=== PATIENT | male | born 1985 | race Caucasian/White ===

== ENCOUNTER 2017-12-23 16:17 | Inpatient (IN) | payer MEDICAID, SELFPAY ==
[2017-12-23 16:29] VITALS: BMI 28.5
[2017-12-23 16:35] VITALS: BP 135/101; PULSE 83; RESP 16; TEMP 36.9
--- NOTE | 2017-12-23 18:13 | PCM.HP.STD ---
Problem List (1) Opioid withdrawal Status: Acute History of Present Illness Date of Admission: 12/23/17 Chief Complaint: Opioid withdrawal The patient is a 32 year old M who was admitted directly into the medical stabilization program at [facility] for treatment of acute opioid withdrawal. Patient is a daily IV heroin user, he is been using IV heroin for the last 11 years, patient states he has been through detox programs at least 5 times, he states that he has never been in a detox program more than 4 days because he leaves after that time of his own accord. Patient last used yesterday, he is experiencing sweating, muscle aches, restlessness, and malaise. Patient does not admit to using any other illicit drugs. Patient will be admitted into the medical stabilization program for opiate withdrawal at [facility] on MedSurg 2 Past Medical History Allergies No Known Allergies Allergy (Verified 12/23/17 16:37) Home Medications: Ambulatory Orders Medication Instructions Recorded Ciprofloxacin [Cipro] 500 mg PO BID 12/23/17 Surgical History: no surgical history Psychiatric History: No pertinent psych hx Lives: With Family Smoking Status: Current every day smoker Tobacco Use: Cigarettes Alcohol: None Drugs: Heroin - *Family History Maternal History Items: Hypertension Paternal History Items: No pertinent history Review of Systems Constitutional: Reports: Malaise, Fatigue. Denies: Anorexia, Chills, Fever, Night Sweats, Weight Change Eyes: Denies: Blurred vision, Cataracts, Conjunctivae Inflammation, Double vision, Drainage, Eyelid Inflammation HEENT: Denies: Difficulty Hearing, Difficulty Swallowing, Dysphasia, Ear Pain, Eye Pain, Head Aches, Hearing Changes, Nasal bleeding, Nasal Congestion, Post Nasal Drip Cardiovascular: Denies: Chest Pain, Claudication, Chest Pressure, Chest Tightness, Edema, Orthopnea, Palpitations, Paroxysmal Noc. Dyspnea, Syncope Respiratory: Denies: Cough, Hemoptysis, Pleuritic Pain, Shortness of Breath, Shortness of breath upon exertion, Sputum production, Wheezing Gastrointestinal: Denies: Abdominal Pain, Constipation, Diarrhea, Hematemesis, Hematochezia, Nausea, Vomiting Genitourinary: Denies: Dysuria, Frequency, Hematuria, Incontinence, Nocturia, Retention Musculoskeletal: Reports: Muscle pain. Denies: Back Pain, Foot Pain, Hand Pain, Joint stiffness, Joint swelling Skin: Denies: Dryness, Jaundice, Pruritis, Rash Neurological: Denies: Blurred vision, Double vision, Change in Speech, Slurred speech, Focal weakness, Headaches, Incoordination, Numbness Psychiatric: Denies: Anxiety, Depression, Homicidal Ideations, Suicidal Ideations Endocrine: Denies: Change in Body Habitus, Polyuria, Hx of Irradiation, Hx of Thyroiditis Hematologic/ Lymphatic: Denies: Adenopathy, Anemia, Easy Bruising, Purpura, Hx of blood clot VTE Information - Inpt Only VTE Present on Admission: No VTE Mechan Device Prophylaxis: None VTE Pharm Prophylaxis ordered?: Yes Reason prophylaxis not ordered:: Treatment Not Indicated - low risk for VTE Patient Problems: Active and Suspected Problems Opioid withdrawal (Acute) - Physical Exam General: Alert, Oriented x3, Cooperative, Well developed, - - Patient appears restless HEENT: Atraumatic, PERRLA, EOMI, Normocephalic Oral: Moist Mucosa Neck: Supple, No JVD, Negative Carotid Bruits, No Nuchal Rigidity, Trachea Midline, Thyroid Normal Size and Texture Lungs: Clear to auscultation, Normal air movement, No rhonchi, No wheeze, No rales Cardiovascular: Regular rate, Regular Rhythm, Normal S1, Normal S2, Murmur - There is a 1/6 systolic murmur noted at the apex Abdomen: Bowel Sounds Present, Soft, Non Tender, Non-Distended, No hernias noted Extremities: No clubbing, No cyanosis, No edema, Capillary Refill Less than 3 Seconds Skin: No rashes, - - Multiple needle tracks are noted over both arms, there are raised areas which appeared to be either scarred areas or areas of irritation, there is no evidence of any discharge or evidence of redness noted. Musculoskeletal: No Tenderness to Palpation of Joints or Extremities Neurological: Cranial nerves II-XII grossly intact, Neuro grossly intact, Sensory exam intact to light touch and pain, Coordination normal Psych/Mental Status: Appropriate, Anxious, Restless Vital Signs Temp Pulse Resp BP 98.4 F 83 16 135/101 H 12/23/17 16:35 12/23/17 16:35 12/23/17 16:35 12/23/17 16:35 Weight: 95.246 kg Body Mass Index (BMI) 28.5 Assessment/Plan Active and Suspected Problems Opioid withdrawal (Acute) #1 acute opioid withdrawal-patient was admitted into the medical stabilization program on MedSurg to, order sets were used. Patient requested the use of gabapentin for help with his withdrawal, I told him that this was not an option on our order sets and I was not going to write for this medication. #2 heroin addiction #3 recent history of urethritis/cystitis-patient was taking Cipro as an outpatient given to him by the emergency room at [facility], I called [facility] and talked to micro and his last urine culture done recently was negative for growth, I do not think he needs any Cipro currently. #4 ADHD-by history Code Visit Inpatient E&M: 53440 Init Hosp L3
[2017-12-23] MEDS: Buprenorphine HCl 2 MG TAB.SUBL 4 MG SL (18:56)
[2017-12-23] MEDS: chlordiazePOXIDE 25 MG Capsule PO (18:57)
[2017-12-23] MEDS: Methocarbamol 750 MG Tablet PO (18:57)
--- NOTE | 2017-12-23 18:58 | NURSING ---
THIS NURSE GATHERED SUBUTEX, METHOCARBONOL, LIBRIUM AND CLONIDINE. UPON ENTERING ROOM, PT TERAERS OUTIM TAKING A SHIT, CAN YOU COME BACK IN A FEW MINUTES. APPROX 2 MINUTES LATER, HE IS AT THE DESK ASKING FOR MEDS OR ELSE HE COULD GO SOMEWHERE ELSE, I DID NOT HEAR ALL OF THAT. WE WENT TO ROOM, COMPUTER IS NOW NOT WORKING, PT SAID HE REALIZED THAT WAS NOT A COMPUTER HE COULD MESS WITH, SAID HE ONLY TOUCHED THE MOUSE AND THE FINGERPRINT ON THE SCREEN. SO FAR I HAVE UNPLUGGED AND PLUGGED THE COMPUTER BACK IN TWICE. HAD TO VERIFY MEDS WITH CHARGE NURSE. PT REFUSED CLONIDINE, THATS FOR BLOOD PRESSURE. I EXPLAINED IT ALSO HELPED WITH ANXIETY/HOT AND COLD SPELLS. HE SAID HE HAD TAKEN THEM A CHILD AND JUST MADE HIM TIRED, HE WOULD CALL IF WAS READY TO GO TO SLEEP. AFTER LOOKING UP THE METHOCARBONOL ON HIS PHONE, ALTHOUGH I HAD EXPLAINED WHAT IT WAS FOR, HE AGREED TO TAKE THAT. WHEN I ALSO TOLD HIM I WAS GIVING HIM LIBRIUM, WHAT HAPPENS WITH THAT WITH XANAX?. AFTER BEING ASKED DIRECTLY HE ADMITTED TO TAKING XANAX PRIOR TO ADMISSION WELL. SAID THE NEURONTIN AND XANAX ARE THE ONLY MEDS HE TOOK PRIOR TO ADMISSION. HE DENIED HAVING ANY MEDICATIONS IN HIS ROOM. WHEN I GAVE HIM THE SUBTEX HE SAID, CAN I SNORT THESE? THEY ARE SO MUCH MORE EFFECTIVE IF YOU SNORT THEM IT GOES DIRECTLY INTO YOUR SYSTEM THAT WAY. TOLD PT NO, HE WAS NOT SNORTING THEM TO PUT THEM UNDER HIS TONGUE.
[2017-12-23] MEDS: cloNIDine HCl 0.1 MG Tablet PO ×2 (19:29→22:58)
--- NOTE | 2017-12-23 20:50 | NURSING ---
It not assess patient, denies need for any PRN's at this time. Patients says that he may take trazadone at bedtime and that he will wait for his next subutex dose.
[2017-12-23 20:52] VITALS: BP 112/69; PULSE 90; RESP 16; TEMP 36.8
[2017-12-23] MEDS: traZODone 50 MG Tablet PO (22:55)
[2017-12-23 23:04] VITALS: BP 121/80; PULSE 82; RESP 16; TEMP 36.6
[2017-12-24 02:55] VITALS: BP 108/65; PULSE 77; RESP 16; TEMP 36.6
[2017-12-24] MEDS: Buprenorphine HCl 2 MG TAB.SUBL 4 MG SL ×2 (02:57→11:47)
[2017-12-24 06:11] VITALS: BP 109/65; PULSE 75; RESP 16; TEMP 36.8
--- NOTE | 2017-12-24 09:04 | PCM.PN.HOSP ---
Patient Problems: Active and Suspected Problems Opioid withdrawal (Acute) Subjective: Patient is having withdrawal symptoms with hot flashes and cold feeling, restlessness and anxiety. Vitals/I&O's: Vital Signs Temp Pulse Resp BP 98.3 F 75 16 109/65 12/24/17 06:11 12/24/17 06:11 12/24/17 06:11 12/24/17 06:11 Weight: 209 lb 15.718 oz Body Mass Index (BMI) 28.5 General: Alert, Oriented x3, Cooperative HEENT: Atraumatic, PERRLA, EOMI, Normocephalic Neck: Supple, No JVD, Negative Carotid Bruits Lungs: Clear to auscultation, Normal air movement, No rhonchi, No wheeze Cardiovascular: Regular rate, No murmurs Abdomen: Bowel Sounds Present, Soft, Non Tender, Non-Distended Extremities: No edema, Capillary Refill Less than 3 Seconds Skin: Rash Present - Needle track signs in both forearm OVER antecubital region Musculoskeletal: No Tenderness to Palpation of Joints or Extremities Neurological: Cranial nerves II-XII grossly intact Psych/Mental Status: Normal Affect, Appropriate Current Medications Acetaminophen (Tylenol) 500 mg PO Q4H PRN PRN PRN Reason: Temp > 100.4 F Al Hydroxide/Mg Hydroxide (Mylanta Ii) 30 ml PO Q6H PRN PRN PRN Reason: dyspesia Bisacodyl (Dulcolax) 10 mg RECTAL DAILY PRN PRN Reason: Constipation Buprenorphine HCl (Buprenorphine Hcl) 4 mg SL Q8H JONO PRN Reason: Taper Stop: 12/26/17 22:59 Last Admin: 12/24/17 02:57 Dose: 4 mg Chlordiazepoxide (Librium) 25 mg PO Q6H PRN PRN PRN Reason: Anxiety Score 2-3/3 Last Admin: 12/23/17 18:57 Dose: 25 mg Clonidine (Catapres) 0.1 mg PO Q2H PRN PRN PRN Reason: Hot/Cold Sweats or Anxiety Last Admin: 12/23/17 22:58 Dose: 0.1 mg Dicyclomine HCl (Bentyl) 20 mg PO Q6H PRN PRN PRN Reason: Abdomnial Discomfort Hydroxyzine HCl (Vistaril Vial) 50 mg IM Q6H PRN PRN PRN Reason: Breakthrough Anxiety Hydroxyzine Pamoate (Vistaril Pamoate Capsule) 50 mg PO Q6H PRN PRN PRN Reason: Mild Anxiety (score 1/3) Ibuprofen (Motrin) 600 mg PO Q8H PRN PRN PRN Reason: Mild-Moderate Pain (1-5/10) Loperamide HCl (Imodium) 2 - 4 mg PO UD PRN PRN Reason: LOOSE STOOLS Methocarbamol (Methocarbamol) 750 mg PO Q6H PRN PRN PRN Reason: Muscle Aches Last Admin: 12/23/17 18:57 Dose: 750 mg Multivitamins/Minerals (Multivitamin With Minerals) [facility] Last Admin: 12/24/17 08:55 Dose: Not Given Nicotine (Nicoderm Cq (Pbkc)) 21 mg TRANSDERM. DAILY [facility] Ondansetron HCl (Zofran Odt) 4 mg PO Q6H PRN PRN PRN Reason: NAUSEA Pramipexole Dihydrochloride (Mirapex) 0.25 mg PO Q12H PRN PRN PRN Reason: Restless Legs Quetiapine Fumarate (Seroquel) 25 mg PO Q6H PRN PRN PRN Reason: Moderate Anxiety (score 2/3) Senna (Senokot) 1 tablet PO QHS PRN PRN Reason: Constipation Trazodone HCl (Desyrel) 50 mg PO QHS [facility] Last Admin: 12/23/17 22:55 Dose: 50 mg Medical Necessity - Tobacco Use Smoking Status: Current every day smoker Tobacco Use: Cigarettes Assessment/Plan Active and Suspected Problems Opioid withdrawal (Acute) The patient is a 32 year old M who was admitted directly into the medical stabilization program at [facility] for treatment of acute opioid withdrawal. Patient is a daily IV heroin user, he is been using IV heroin for the last 11 years, patient states he has been through detox programs at least 5 times, he states that he has never been in a detox program more than 4 days. 1. Acute opioid withdrawal with history of opioid use and dependence: Patient is on medical stabilization for opioid withdrawal as per [facility] program. Labs ordered. 2. Recent history of urethritis/cystitis: Patient completed Cipro as an outpatient, given by ER physician admitted in the hospital. Last urine culture was recently negative for growth. It is no need for further treatment. 3. ADHD: Stable DVT prophylaxis: Low risk does not need prophylaxis. Early ambulation encouraged. This note was generated with [employer] dictation software. Every effort was made to ensure accuracy, however computerized advertising account manager mistakes may persist. Code Visit Inpatient E&M: 74646 Subs Hosp L2
[2017-12-24 10:00] VITALS: BP 112/68; PULSE 68; RESP 16; TEMP 36.9
--- NOTE | 2017-12-24 12:29 | NURSING ---
Patient refusing to allow lab to draw blood after 2 separate attempts. This nurse explained to pt that the lab scientist can not come back multiple times to see if he will allow his labs drawn and that if he will not let her draw them now then it will be recorded as refusal. Patient states he will let us know when he's ready for them. Charge nurse informed and labs marked as refusal. Patient also refuses all prn meds, will only take subutex and will not allow any other direct care to be given to him.
--- NOTE | 2017-12-24 15:13 | DS.PCM_ITS ---
Discharge Date and Diagnosis Date of Admission: 12/23/17 Date of Discharge: 12/24/17 - Primary Discharge Diagnosis Acute opioid withdrawal with history of opioid use and dependence Hospital Course and Treatment Summary of Care Provided: The patient is a 32 year old M who was admitted directly into the medical stabilization program at [facility] for treatment of acute opioid withdrawal. Patient is a daily IV heroin user, he is been using IV heroin for the last 11 years, patient states he has been through detox programs at least 5 times, he states that he has never been in a detox program more than 4 days. 1. Acute opioid withdrawal with history of opioid use and dependence: Patient is on medical stabilization for opioid withdrawal as per [facility] program. Labs ordered. The patient signed AMA. Labs are ordered but most rapidly he refused. 2. Recent history of urethritis/cystitis: Patient completed Cipro as an outpatient, given by ER physician admitted in the hospital. Last urine culture was recently negative for growth. It is no need for further treatment. 3. ADHD: Stable DVT prophylaxis: Low risk does not need prophylaxis. Early ambulation encouraged. Risk and benefit of signing AMA explained. Patient awake and cognizant enough to make decision of AMA This note was generated with [employer] dictation software. Every effort was made to ensure accuracy, however computerized candy supervisor mistakes may persist. Home Medications: Medications to take at Discharge Ciprofloxacin [Cipro] 500 mg PO BID 12/23/17 Primary Care Physician: Care Physician,No Primary [Primary Care Provider] - Medical Necessity - Tobacco Use Smoking Status: Current every day smoker Tobacco Use: Cigarettes Meaningful Use Info Meaningful Use Diagnoses (Choose all that apply): None applicable
== END 2017-12-24 14:57 | disposition left against medical advice (07) | DRG 433 ==
PROVIDERS: Admitting Provider Internal Medicine; Visit Provider Internal Medicine
DX: F11.23 Opioid dependence with withdrawal (principal); F17.210 Nicotine dependence, cigarettes, uncomplicated; F90.9 Attention-deficit hyperactivity disorder, unspecified type; Z87.440 Personal history of urinary (tract) infections

== ENCOUNTER 2018-11-24 13:25 | Emergency (ER) | payer MEDICAID, SELFPAY ==
[2018-11-24 13:25] VITALS: BP 170/95; PULSE 96; RESP 16; TEMP 36.6; O2SAT 100; BMI 30.7
--- NOTE | 2018-11-24 13:55 | ED.VISSUMM ---
- ER Visit Summary Date of Service: 11/24/18 Chief Complaint: Left forearm abscess History of Present Illness: The patient is a 33 M who presents with left forearm abscess that is been getting worse over the past 2 days. Patient admits to using heroin and gabapentin. Patient states he injected in this area a few days ago. Patient states he noted some swelling over this area. Patient states he sterilized a razor blade and made an incision. Patient states he has got some mild drainage coming out of it. Patient states there is some persistent serous drainage coming from the wound. Patient denies any fevers or chills. Patient went to 180 today and he was referred here for medical evaluation. Physical Examination: Vital signs are stable. Patient is afebrile. Patient is in no acute distress. Oral mucosa is pink and moist. Neck is supple. Trachea is midline. There is no JVD noted. Heart was regular rate and rhythm. Lungs are clear and equal bilateral. Abdomen is soft. Bowel sounds are normal. There is some mild left upper quadrant tenderness. There is no rebound or guarding noted. Skin is warm dry. There are multiple abscesses noted. There is some serous drainage noted from the left proximal forearm area. There is some induration over this area. There is no purulent drainage noted. Radial pulses are equal bilateral. There are no sensory deficits noted. Test Results: CBC was normal. Conference of metabolic profile shows slightly elevated AST of 100 and ALT of 179. Urinalysis was normal. Urine tox screen was positive for amphetamines. Serum alcohol level was obtained and is pending. Emergency Department Course and Treatment: Patient was in to evaluate the patient. Patient does not meet criteria for inpatient admission. Since the patient already made an incision and drained his abscess at home, I do not feel incision and drainage is necessary at this time. Patient wants to go home. Patient will be discharged with a prescription for Keflex. Patient was instructed to follow-up with 180. Patient understood and was agreeable with the plan. All questions were answered. Disposition: Discharge home Impression: Left forearm abscess This note was generated with [employer] dictation software. It may contain incorrect words, spelling, and punctuation that were not noted in review of the chart prior to signing ED Disposition - Plan for ED Patient: Disposition: Home or Assisted Living Diagnosis: Abscess of left forearm Instructions: ED Drug Abuse General, ED Staph Infec Abx Tx Only Prescriptions: Cephalexin [Keflex] 500 mg PO Q6 #40 cap Referrals: Care Physician,No Primary [Primary Care Provider] -
[2018-11-24 14:21] LABS: Color, Urine Yellow (Yellow); Glucose, Dipstick Normal (Normal); Ketone-Dipstick Negative (Negative); Leukocyte Esterase-Dipstick Negative /ul (Negative); Nitrite-Dipstick Negative (Negative); Occult Blood-Urine Negative /ul (Negative); Protein-Dipstick Negative (Negative); Specific Gravity, Urine 1.015 (1.002-1.030); Urine Bilirubin Dipstick Negative (Negative); Urine Clarity Sl. Cloudy (Clear); Urine Urobilinogen Normal (Normal); Urine pH 6.5 (5.0 - 8.0); White Blood Cells 0 SEEN /hpf (0-5)
[2018-11-24 14:33] LABS: Amphetamine Urine VISTA POSITIVE (<1000 ng/mL); Barbiturate Urine VISTA NEGATIVE (< 200 ng/mL); Benzodiazepine Urine VISTA NEGATIVE (< 200 ng/mL); Cocaine Urine VISTA NEGATIVE (< 300 ng/mL); Ecstacy Urine VISTA NEGATIVE (< 500 ng/mL); Methadone Urine VISTA NEGATIVE (< 300 ng/mL); PCP Urine VISTA NEGATIVE (< 25 ng/mL); THC Urine VISTA NEGATIVE (< 50 ng/mL); Vista UDS pH Range 7
[2018-11-24 14:37] LABS: Bacteria RARE /hpf (None Seen); Mucous, Urine RARE /hpf (<or=2+); Red Blood Cells-Urine 0-5 SEEN /hpf (0-5); Squamous Epithelial Cells - UA 0-5 SEEN /hpf (0-5)
[2018-11-24 14:56] LABS: Absolute Lymphocyte Count 2.08 X10^3/ul (0.83-4.51); Absolute Neutrophil Count 2.8 X10^3/uL (2.0-7.7); Basophil# 0.03 X10^3/uL; Basophil% 0.5 % (0-1); Eosinophil# 0.32 X10^3/uL; Eosinophils% 5.7 % (0-5); Hematocrit 38.3 % (40-54); Hemoglobin 12.3 g/dl (13.0-16.5); Lymphocyte # 2.08 X10^3/ul (4.0); Lymphocyte % 37.1 % (19-41); Mean Corp Hgb Conc 32.1 g/gl (32-36); Mean Corpuscular Hgb 26.5 pg (27.0-32.0); Mean Corpuscular Volume 82.4 fL (80-94); Mean Platelet Vol. 9.2 fl (6.2-12.0); Monocyte# 0.42 X10^3/uL; Monocyte% 7.5 % (0-10); Neutrophil # 2.75 X10^3/uL (2.7-7.7); Platelet Count 167 K/mm3 (150-450); RBC Distribution Width CV 14.5 % (11.6-14.6); RBC Distribution Width SD 43.4 fl (35.1-43.9); Red Blood Count 4.65 M/mm3 (4.6-6.2); White Blood Count 5.6 K/mm3 (4.4-11.0)
[2018-11-24 14:57] LABS: POSITIVE COUNT NO; POSITIVE DIFFERENTIAL NO; POSITIVE MORPHOLOGY NO
[2018-11-24 15:04] LABS: ALB/GLOB Ratio 0.8 RATIO (0.9-2.4); AST(SGOT) 100 U/L (15-37); Alanine Aminotransfer ALT/SGPT 179 U/L (16-61); Albumin, Serum 3.1 g/dL (3.2-5.0); Alkaline Phosphatase 82 U/L (45-117); Anion Gap 3 (5-15); BUN 10 mg/dL (7-18); BUN/Creat Ratio 11.9 RATIO (10-20); Calcium,Total 8.2 mg/dL (8.5-10.1); Chloride 106 mmol/L (98-107); Creatinine, Serum 0.84 mg/dL (0.70-1.30); EST Glomerular Filtration Rate 112 mL/min (>60); Est Glom Filt Rate - Afr Amer 136 mL/min (>60); Estimated Creatinine Clearance 138.57 ml/min; Globulin 3.8 g/dL (2.2-4.2); Glucose 87 mg/dL (74-106); Protein, Total 6.9 g/dL (6.4-8.2); Sodium Level 136 mmol/L (136-145)
[2018-11-24 15:05] VITALS: TEMP 36.8
--- NOTE | 2018-11-24 15:05 | ED.RN ---
PT SITING ON FOOT OF BED WHEN THIS RN ENTERED TO TAKE VITALS, APPEARS ANXIOUS. PT STATES HE NEEDS TO LEAVE IMMEDIATELY, HASN'T USED HEROIN SINCE EARLY THIS MORNING. PT ALSO STATES HE IS NOT ENTERING DETOX PROGRAM, STATES THEY WON'T GIVEN ME ENOUGH SUBOXONE. PT ASKS FOR RX AND DISCHARGE. WILL NOTIFY .
[2018-11-24 15:29] VITALS: RESP 16
--- NOTE | 2018-11-24 15:30 | ED.RN ---
THIS RN D/C'D PT'S IV. PT AND FATHER WERE EAGER TO LEAVE. DISCHARGE PAPER WORK GIVEN TO PT. PT LEFT PRIOR TO TAKING VITAL SIGNS.
== END 2018-11-24 15:31 | disposition home or self-care (01) ==
PROVIDERS: Emergency Provider Emergency Medicine
DX: L02.414 Cutaneous abscess of left upper limb (principal); Z72.0 Tobacco use
CPT/HCPCS: 80053; 80307; 80320; 81001; 85025; 99285; A4216; G0480